=== PATIENT | male | born 1940 | race Two or more races ===

== ENCOUNTER 2017-08-01 23:05 | Emergency (ER) | payer OTHER ==
[~2017-08-01] VITALS: Ht 177.8 cm; Wt 72.6 kg
[2017-08-02 00:03] LABS: Basophils # (auto) 0 uL; Basophils % (auto) 0.5 % (0.0-2.0); Eosinophils # (auto) 0.1 uL; Eosinophils % (auto) 1.1 % (0.0-7.0); Hematocrit 47.8 % (41.0-53.0); Hemoglobin 16.2 g/dL (13.5-17.5); Lymphocytes % (auto) 20.4 % (10.0-50.0); Mean Corpuscular Hemoglobin 32.7 pg (28.0-32.0); Mean Corpuscular Volume 96.2 fL (80.0-100.0); Mean Platelet Volume 9.2 fL (6.9-10.8); Monocytes % (auto) 10.2 % (0.0-12.0); Neutrophils # (auto) 6.6 uL; Neutrophils % (auto) 67.8 % (37.0-80.0); Nucleated Red Blood Cells % 0.1 %; Platelet Count (auto) 173 10^3/uL (140-450); White Blood Cell 9.7 10^3/uL (4.4-10.8)
[2017-08-02 00:22] LABS: Acetaminophen < 2.0 ug/mL (10-30)
[2017-08-02 00:23] LABS: Albumin 3.7 g/dL (3.4-5.0); Alkaline Phosphatase 64 U/L (45-117); Anion Gap 10 (5-15); Aspartate Aminotransferase 16 U/L (15-37); BUN/Creatinine Ratio 19.8; Bilirubin, Total 1.7 mg/dL (0.2-1.0); Blood Urea Nitrogen 22 mg/dL (7-18); Calcium 8.8 mg/dL (8.5-10.1); Carbon Dioxide 25 mmol/L (21-32); Chloride 105 mmol/L (98-107); GFR African American 82 mL/min; GFR Non-African American 68 mL/min; Glucose 98 mg/dL (74-106); Potassium 3.6 mmol/L (3.5-5.1); Sodium 140 mmol/L (136-145); Total Protein 7.1 g/dL (6.4-8.2)
[2017-08-02 00:56] LABS: Salicylate < 0.2 mg/dL (2.8-20.0)
[2017-08-02] MEDS ORDERED: NEOMYCIN-BACITRACIN-POLYM 15GM TOP OINT TOP ONE (03:15)
[2017-08-02 04:02] LABS: Urine Bilirubin Negative (Negative); Urine Blood Negative /uL (Negative); Urine Color Yellow (Yellow); Urine Glucose Normal (Normal); Urine Ketone Negative (Negative); Urine Mucus FEW (None Seen); Urine Nitrite Negative (Negative); Urine RBC 1 /hpf (0 - 3); Urine Squamous Epithelial Cell FEW /hpf (<5); Urine Urobilinogen Normal (Negative); Urine pH 5.5 (5.0-8.0)
[2017-08-02] MEDS ORDERED: CARVEDILOL 12.5 MG TAB PO ONE (17:15)
[2017-08-02] MEDS ORDERED: ATORVASTATIN 20 MG TAB PO SCH (22:00)
[2017-08-02] MEDS ORDERED: LORazepam 0.5 MG TAB ONE (22:52)
[2017-08-02] MEDS ORDERED: LORazepam 0.5 MG TAB PO ONE (23:00)
[2017-08-03] MEDS ORDERED: PANTOPRAZOLE 40 MG TAB PO ONE (08:30)
[2017-08-03] MEDS ORDERED: ALUM & MAG HYDROX-SIMETH LIQ(MAALOX) 30 ML PO ONE (08:30)
[2017-08-03 09:44] VITALS: BP 146/66
[2017-08-03] MEDS ORDERED: TERAZOSIN HCL 1 MG CAP PO SCH (10:00)
[2017-08-03] MEDS ORDERED: PANTOPRAZOLE 40 MG TAB PO SCH (10:00)
[2017-08-03] MEDS ORDERED: FUROSEMIDE 40 MG TAB PO SCH (10:00)
[2017-08-03] MEDS ORDERED: DIGOXIN 0.125 MG TAB PO SCH (10:00)
== END 2017-08-03 10:02 | disposition short-term general hospital (02) ==
LOC: ER 23:11
DX: S61.512A Laceration without foreign body of left wrist, initial encounter (principal); X78.9XXA Intentional self-harm by unspecified sharp object, initial encounter; Y93.89 Activity, other specified; Y99.8 Other external cause status; Y92.89 Other specified places as the place of occurrence of the external cause
CPT/HCPCS: 12004; 36415; 80053; 80307; 80320; 80329; 81001; 85025